=== PATIENT | female | born 1980 | race Caucasian/White ===

== ENCOUNTER 2020-06-08 20:04 | Emergency (ER) | payer OTHER ==
[~2020-06-08] VITALS: Ht 170.2 cm; Wt 88.9 kg
[2020-06-08 20:17] LABS: URINE BILIRUBIN NEGATIVE (Negative); URINE BLOOD NEGATIVE (Negative); URINE CLARITY SL CLOUDY; URINE COLOR YELLOW; URINE GLUCOSE-RANDOM NEGATIVE (Negative); URINE KETONES NEGATIVE (Negative); URINE LEUKOCYTES-REFLEX NEGATIVE (Negative); URINE NITRITE-REFLEX NEGATIVE (Negative); URINE PROTEIN NEGATIVE (Negative); URINE UROBILINOGEN 0.2 E.U./dl (0.2-1.0)
[2020-06-08 20:23] LABS: SQUAMOUS >10 Many /LPF (0-3)
[2020-06-08 20:24] LABS: AMORPHOUS PHOSPHATES Moderate /LPF (None Seen); BACTERIA-REFLEX None Seen /HPF (None Seen); CASTS None Seen /LPF (None Seen); MUCUS None Seen strn/LPF (None Seen); URINE RBC None Seen /HPF (0-2); URINE WBC-REFLEX 0-5 Rare /HPF (0-5)
[2020-06-08] MEDS ORDERED: NORCO5 PO ×2 (20:45→20:48)
[2020-06-08] MEDS ORDERED: IBUPROFEN 600600 M1 PO (20:45)
[2020-06-08 21:00] VITALS: BP 140/83
== END 2020-06-08 21:01 | disposition home or self-care (01) ==
LOC: M.ERS 20:04
PROVIDERS: Physician Assistant
DX: M54.5 Low back pain (principal); M79.18 Myalgia, other site; F17.210 Nicotine dependence, cigarettes, uncomplicated

== ENCOUNTER 2020-11-09 18:48 | Emergency (ER) | payer OTHER ==
[~2020-11-09] VITALS: Ht 172.7 cm; Wt 117.9 kg
[~2020-11-09 18:48] MED LIST: IBUPROFEN 600600 M1 PO; NORCO5 PO
[2020-11-09 19:38] LABS: URINE BILIRUBIN NEGATIVE (Negative); URINE BLOOD TRACE (Negative); URINE CLARITY CLEAR; URINE COLOR YELLOW; URINE GLUCOSE-RANDOM NEGATIVE (Negative); URINE KETONES NEGATIVE (Negative); URINE LEUKOCYTES-REFLEX NEGATIVE (Negative); URINE NITRITE-REFLEX NEGATIVE (Negative); URINE PROTEIN NEGATIVE (Negative); URINE UROBILINOGEN 0.2 E.U./dl (0.2-1.0)
[2020-11-09 19:39] LABS: ABSOLUTE BASOPHILS 0.1 thou/uL (0.0-0.2); ABSOLUTE LYMPHOCYTES 2.7 thou/uL (0.8-5.3); ABSOLUTE MONOCYTES 0.5 thou/uL (0.0-1.2); ABSOLUTE NEUTROPHILS 3.8 thou/uL (1.6-8.1); BASOPHILS 0.9 %; EOSINOPHILS 0.6 %; HEMATOCRIT 41.6 % (37.0-47.0); HEMOGLOBIN 14.2 gm/dL (12.0-15.0); LYMPHOCYTES 38.4 %; MCH 30.2 pg (26.0-34.0); MCHC 34.3 g/dL (28.0-37.0); MCV 88.1 fL (80.0-100.0); MONOCYTES 7.4 %; MPV 9.1 fl. (7.2-11.1); NUCLEATED RBCS 0 /100WBC; PLATELET COUNT* 201 thou/uL (150-400); POLYS 52.7 %; RBC 4.72 mil/uL (4.20-5.00); RDW-CV 13.2 % (10.5-14.5); WBC 7.2 thou/uL (4.0-11.0)
[2020-11-09 19:42] LABS: CALCIUM 8.9 mg/dL (8.5-10.1); CREATININE 0.6 mg/dL (0.6-1.3); POTASSIUM 3.7 mmol/L (3.5-5.1)
[2020-11-09 19:47] LABS: ALBUMIN 3.9 g/dL (3.4-5.0); TOTAL BILIRUBIN 0.4 mg/dL (<0.1-1.0); TOTAL PROTEIN 7.5 g/dL (6.4-8.2)
[2020-11-09] MEDS ORDERED: HYDROCODON-ACE1 EAC8 PO (23:38)
[2020-11-09 23:48] VITALS: BP 141/70
== END 2020-11-09 23:48 | disposition home or self-care (01) ==
LOC: M.ERS 18:48
PROVIDERS: Emergency Medicine
DX: R10.31 Right lower quadrant pain (principal); F17.210 Nicotine dependence, cigarettes, uncomplicated; Z79.899 Other long term (current) drug therapy

== ENCOUNTER 2021-02-02 23:27 | Emergency (ER) | payer OTHER ==
[~2021-02-02] VITALS: Ht 170.2 cm; Wt 86.2 kg
[~2021-02-02 23:27] MED LIST changes: +HYDROCODON-ACE1 EAC8 PO
[2021-02-02] MEDS ORDERED: CLEOCIN HCL300 MG PO (23:43)
[2021-02-02] MEDS ORDERED: HYDROCODON-ACE1 EAC8 PO (23:43)
[2021-02-02 23:54] VITALS: BP 153/72
== END 2021-02-02 23:56 | disposition home or self-care (01) ==
LOC: M.ERS 23:27
DX: K04.7 Periapical abscess without sinus (principal); F17.210 Nicotine dependence, cigarettes, uncomplicated